=== PATIENT | male | born 1935 | race Caucasian/White ===

== ENCOUNTER 2020-09-10 18:26 | Emergency (ER) | payer OTHER | END 2020-09-11 00:36 | disposition home or self-care (01) | LOC: ER1 18:26 | DX: S51.012A Laceration without foreign body of left elbow, initial encounter (principal); S93.402A Sprain of unspecified ligament of left ankle, initial encounter; S80.02XA Contusion of left knee, initial encounter; S50.02XA Contusion of left elbow, initial encounter; S40.012A Contusion of left shoulder, initial encounter; I10 Essential (primary) hypertension; K21.9 Gastro-esophageal reflux disease without esophagitis; F17.200 Nicotine dependence, unspecified, uncomplicated; Z23 Encounter for immunization; W10.9XXA Fall (on) (from) unspecified stairs and steps, initial encounter | CPT/HCPCS: 73030; 73080; 73502; 73562; 73610; 73700; 90471; 90715; 99284; J0153 ==